=== PATIENT | male | born 1950 | race Caucasian/White ===

== ENCOUNTER → 2018-06-05 | Outpatient (CLI) | payer OTHER ==
[~2018-06-05] MED LIST: ACCUPRIL40 MG; ASPIRIN325 PO; FISH OIL 1,001000 M2 PO; FLEXERIL PO; GINGER250 MG PO; HYDROCHLOROTHIA25 M1; LISINOPRIL10 MG PO; MOBIC15 MG PO; NAPROSYN500 MG PO; PERCOCET 5-3251 EACH PO; TAMSULOSIN HCL0.4 MG PO; TYLENOL325 MG PO; VITAMIN E100 UNI2 PO
== END ==
LOC: M.LAB 04:37
DX: Z01.812 Encounter for preprocedural laboratory examination (principal); I12.9 Hypertensive chronic kidney disease with stage 1 through stage 4 chronic kidney disease, or unspecified chronic kidney disease; N18.9 Chronic kidney disease, unspecified

== ENCOUNTER 2018-06-27 19:17 | Emergency (ER) | payer OTHER ==
[~2018-06-27] VITALS: Ht 170.2 cm; Wt 108.9 kg
[2018-06-27] MEDS ORDERED: NORVASC5 MG PO (19:33)
[2018-06-27] MEDS ORDERED: FLOMAX0.4 MG PO (19:33)
[2018-06-27] MEDS ORDERED: ATENOLOL 50MG T50 M1 PO (19:33)
[2018-06-27] MEDS ORDERED: NORCO 5-325 TA1 EACH PO (20:06)
[2018-06-27 20:28] VITALS: BP 152/92
== END 2018-06-27 20:28 | disposition home or self-care (01) ==
LOC: M.ERS 19:17
DX: R07.81 Pleurodynia (principal); I10 Essential (primary) hypertension; W19.XXXA Unspecified fall, initial encounter; Y93.89 Activity, other specified; Y92.89 Other specified places as the place of occurrence of the external cause; Y99.8 Other external cause status

== ENCOUNTER 2019-01-06 05:18 | Emergency (ER) | payer OTHER ==
[~2019-01-06] VITALS: Ht 172.7 cm; Wt 110.7 kg
[~2019-01-06 05:18] MED LIST changes: +ATENOLOL 50MG T50 M1 PO; +FLOMAX0.4 MG PO; +NORCO 5-325 TA1 EACH PO; +NORVASC5 MG PO
[2019-01-06] MEDS ORDERED: NORVASC 2.5 MG2.5 M1 PO (05:37)
[2019-01-06] MEDS ORDERED: LISINOPRIL-HCT1 EAC2 PO (05:38)
[2019-01-06 05:45] LABS: URINE BILIRUBIN NEGATIVE (Negative); URINE BLOOD TRACE (Negative); URINE CLARITY CLEAR; URINE COLOR YELLOW; URINE GLUCOSE-RANDOM NEGATIVE (Negative); URINE KETONES NEGATIVE (Negative); URINE NITRITE-REFLEX NEGATIVE (Negative); URINE PROTEIN NEGATIVE (Negative); URINE SPECIFIC GRAVITY 1.025 (1.005-1.030); URINE UROBILINOGEN 0.2 E.U./dl (0.2-1.0)
[2019-01-06 05:57] LABS: URINE LEUKOCYTES-REFLEX 2+ (Negative)
[2019-01-06 06:03] LABS: HEMATOCRIT 43.7 % (42.0-52.0); HEMOGLOBIN 15.2 gm/dL (14.0-18.0); MCH 30.8 pg (26.0-34.0); MCHC 34.8 g/dL (28.0-37.0); MCV 88.5 fL (80.0-100.0); MPV 7.8 fl. (7.2-11.1); NUCLEATED RBCS 0 /100WBC; PLATELET COUNT* 274 thou/uL (150-400); RBC 4.94 mil/uL (4.50-6.00); RDW-CV 13.3 % (10.5-14.5); WBC 13.6 thou/uL (4.0-11.0)
[2019-01-06 06:06] LABS: CALCIUM 9.8 mg/dL (8.5-10.1); CREATININE 1.5 mg/dL (0.6-1.3); POTASSIUM 3.9 mmol/L (3.5-5.1)
[2019-01-06 06:10] LABS: BACTERIA-REFLEX >30 Many /HPF (None Seen); CASTS None Seen /LPF (None Seen); CRYSTALS None Seen /LPF (None Seen); MUCUS 4-6 Moderate strn/LPF (None Seen); SQUAMOUS 0-3 Few /LPF (0-3); URINE WBC-REFLEX 6-15 Few /HPF (0-5)
[2019-01-06 06:36] LABS: ABSOLUTE LYMPHOCYTES 1.5 thou/uL (0.8-5.3); ABSOLUTE MONOCYTES 1.1 thou/uL (0.0-1.2)
[2019-01-06 06:37] LABS: PLATELET ESTIMATE ADEQUATE
[2019-01-06] MEDS ORDERED: ZOFRAN ODT4 MG PO (09:50)
[2019-01-06] MEDS ORDERED: NORCO 5-325 TA1 EAC1 PO (09:50)
[2019-01-06] MEDS ORDERED: TORADOL 10 MG T10 MG PO (09:50)
[2019-01-06 10:18] VITALS: BP 156/89
== END 2019-01-06 10:19 | disposition still patient (30) ==
LOC: M.ERS 05:18
PROVIDERS: Emergency Medicine
DX: N39.0 Urinary tract infection, site not specified (principal); K80.20 Calculus of gallbladder without cholecystitis without obstruction; N23 Unspecified renal colic; N28.1 Cyst of kidney, acquired; I10 Essential (primary) hypertension